=== PATIENT | female | born 1960 | race Caucasian/White ===

== ENCOUNTER → 2018-11-18 | Outpatient (CLI) | payer BC ==
--- NOTE | 2018-11-18 19:44 | REP ---
Clinical: Trauma with the left knee pain. Technique: AP, lateral, bilateral oblique and sunrise views. Findings: The osseous structures and joint spaces are intact and normal. There is no evidence for acute fracture or dislocation. No joint effusion is appreciated. Surrounding soft tissues are unremarkable. No subcutaneous emphysema or radiodense foreign body. Impression: Normal examination. No acute fracture or dislocation. Electronically Signed by Nasir Schaefer MD 11/18/2018 07:36 P
== END ==
LOC: M LRY 19:14
PROVIDERS: ATTEND Physician Assistant
DX: S89.92XA Unspecified injury of left lower leg, initial encounter (principal); X58.XXXA Exposure to other specified factors, initial encounter; Y92.89 Other specified places as the place of occurrence of the external cause